=== PATIENT | male | born 1985 ===

== ENCOUNTER 2021-10-09 03:52 | Outpatient (CLI) | payer BC, SELFPAY ==
--- OUTSIDE RECORDS SUMMARY | 2021-10-09 03:54 | XMS_ITS | Encounter Summary ---
:1985 External Reference #:[id number] Author Reason for Visit None recorded. Assessment and Plan 1. Hyperlipidemia screening ? CMP, serum or plasma ? lipid panel, serum ? lipoprotein a, qn, serum 2. Increased frequency of urinat ion ? frequent urination: care i nstructions ? urinalysis complete, refle x culture ? PSA, total + free, serum o r plasma ? HbA1c (hemoglobin A1c), bl ood ? CBC w/ diff 3. Vitamin D deficiency ? vitamin D, 25-hydroxy, tot al, serum 4. Temporomandibular joint disor carmen ? temporomandibular disorder : care instructions ? physical therapist referra l - also has had 7 concussions in lifetime and knee injuries- please do full evalua tion for chronic issues 5. Pain of right knee joint 6. Pain of right knee region 7. Raynaud's phenomenon Discussion Note: None recorded. Plan of Care Patient Instructions 1. please take time to fill vaccina tion records referral to Physical therapy 2 ,eat blueberries 1/4 cups a day- when do smoothies Reminders Provider Appointments Established Jen persaudrocio Corinabuddy, Patient 45 10/15/2021 ND 3:45PM Lab CMP, Serum or [place] Plasma 09/29/2021 [facility] ? Lipid Panel, [place] Serum 09/29/2021 [facility] ? Lipoprotein a, No [place] Qn, Serum 09/29/2021 [facility] ? Urinalysis [place] Complete, Reflex Culture 09/29/2021 [facility] ? PSA, Total + [place] Free, Serum or Plasma 09/29/2021 [facility] ? HbA1C [place] (Hemoglobin a1C), Blood 09/29/2021 [facility] ? CBC W/ Diff [place] 09/29/2021 [facility] ? Vitamin D, [place] 25-Hydroxy, Total, Serum 09/29/2021 [facility] Referral Physical [facility] Referral 09/29/2021 Therapy Procedures None recorded. ? ? Surgeries None recorded. ? ? Imaging None recorded. ? ? Medications No Medications Reported Medications Administered None recorded. Vitals Height Weight BMI Blood Pressure 5 ft 6.5 in 157 lbs 16 oz 25.1 kg/m2 110/72 mm[Hg] Results Lab Results None recorded. Allergies Code Code System Name Reaction Severity Onset NKDA ? ? ? Problems Name Status Onset Date Source ? Joint Stiffness Active 09/29/2021 ? Procedures Date Name Performed by ? 09/07/2019 Vasectomy Information not avai lable Vaccine List None recorded. Social History Tobacco Smoking Status Never Smoker What type of diet are you following? REGULAR Do you have difficulty walking or climbing N stairs? Are you currently employed? Y Are you able to care for yourself? Y Have you processed blood or body fluids from N an Ebola virus disease patient without appropriate PPE? Is blood transfusion acceptable in an Y emergency? What is your relationship status? What is your level of alcohol consumption? Occasional Do you have any pets? Y Do you wear a helmet when biking? Y Have you been to an area known to be high risk N for COVID-19? What type of child care cook do you use? none Are you deaf or do you have serious difficulty N hearing? Are you passively exposed to smoke? N Do you use your seat belt or car seat Y routinely? Do you or have you ever used any other forms N of tobacco or nicotine? Are there any guns present in your home? N Do you have difficulty dressing or bathing? N What is the highest grade or level of school [id number] you have completed or the highest degree you have received? How many children do you have? 0 Are you blind or do you have difficulty N seeing? Do you have transportation difficulties? N In the 14 days before symptom onset, have you N had close contact with a person who is under investigation for COVID-19 while that person was ill? Do you have difficulty doing errands alone? N Do you reside in or have you traveled to an N area where Ebola virus transmission is active? Do you use sunscreen routinely? Y Do you have an advanced directive? N How many days of moderate to strenuous 4 exercise, like a brisk walk, did you do in the last 7 days? Do you use any illicit or recreational drugs? N What is your exercise level? Heavy In the 14 days before symptom onset, have you N had close contact with a laboratory-confirmed COVID-19 while that case was ill? Have there been any changes to your family or N social situation? Do you use insect repellent routinely? N What is the fluoride status of your home? Fluoridated Are you sexually active? Y Do you have difficulty concentrating, N remembering or making decisions? What types of sporting activities do you biking, runnig, hik e and ski participate in? On those days that you engage in moderate to 60 strenuous exercise, how many minutes, on average, do you exercise? What is your level of caffeine consumption? Occasional Do you feel stressed (tense, restless, [id number] nervous, or anxious, or unable to sleep at night)? Family History Relation Problem Onset Age of Age Notes Mother Hypertensive disorder (No N/A (No No geremias) Information) Paternal Grandfather Diabetes mellitus (No N/A (N o Notes) Information) Functional Status No Impairment. Past Encounters 09/29/2021 Hyperlipidemia Screening; Increased Freq uency of Urination; Vitamin D Deficiency; Temporomandibular Joint Disorder; Pain of Right Knee Joint; Pain of Right Knee Region; Raynaud's Phenomenon Yesenia Churchill, [place]: [address] [place] [address], Ph. [phone] History of Present Illness Note: <div>2011 last concussion- skiing others were sports in childhood- </div><div>no post concussion- </div><div>supplements- green drink amazing grass and mushroom tea- ten blend of shrooms- </div><div>for last 10 yrs on and off- </div><div>
</div><div>hep c, covid- just got booster 1 week ago- </div><div>big proponent- </div><div>
</div><div>general health very good- but got a lot of concussions- </div><div>pushes boundries of phyical limits- </div><div>
</div><div>he has noticed freq of urination- if he over drinks he will pee too much- </div><div>and he fears he will dehyrate himeself ig he drinks too much- </div><div>his own theory- </div><div>sugary things make him pee more- so he cut sugar out</div><div>if he adds electrolytes to drinks he pees- more- </div><div>< br></div><div>urgency to urinate- typically not a problem- </div><div>no fork in stream- </div><div>if he drinks a lot he finds he gets dehydrate- </div><div>clear and copius and doesnt want to flush nutrients out- </div><div>
< /div><div>bowels- are regular 2xday</div><div>if not eating salad then stool harder- </div><div>lots of fresh fruit and veggies- no </div><div>frozen yes- </div><div>smoothies when doesnt feel like doing anything- </div><div>walnuts pecan and almonds cashews 1/4 cup flax spinach and kale and mari of fruits with banana on top 4-5 times a week</div><div>
</div><div>1 time an hour- every 1/2 hour if drinks too much</div><div>
</div><div>knee pain from skiing and running- he has to strengthen before exercise and walk after skiing to avoid pain- </div><div>
</div><div>terrible circulation to hands- </div><div>mild looney bite? </div><div>hands turn white</div><div>feet not as bad- </div><div>
</div> Review of Systems None recorded. Physical Exam ? General Adult Exam Reported By: Patient Constitutional: General Appearance: healthy- appearing, well-nourished, well-developed. Level of Dis tress: NAD. Ambulation: ambulating normally Psychiatric: Insight: good judgement. Men serjio Status: active and alert, normal mood, normal affect. Orienta tion: to time, to place, to person. Memory: recent memory normal , remote memory normal Head: Head: normocephalic, atrauma tic Eyes: Lids and Conjunctivae: non-i njected, no discharge, no pallor. Pupils: PERRLA. Corneas: ventura ssly intact. Fundoscopic: grossly normal except where noted, n ormal optic discs, normal vessels, no exudates, no hemorrhages. EO M: EOMI. Lens: clear. Sclerae: non-icteric. Vision: periphe ral vision grossly intact, acuity grossly intact ENMT: Ears: no lesions on external ear, EACs clear, TMs clear, TM mobility normal. Hearing: no hearing loss, Rinne AC>BC. Nose: no lesions on external nose, na res patent, no septal deviation, nasal passages clear, no sinus ten derness, no nasal discharge. Lips, Teeth, and Gums: no mouth or lip ulcers, no bleeding gums, normal dentition. Oropharynx: moist mucous membranes, no exudates, tonsils not enlarged, erythema Lungs: Respiratory effort: no dyspn ea. Percussion: no dullness, flatness, or hyperresonance. Auscultat ion: breath sounds normal, good air movement, CTA except as note d, no wheezing, no rales/crackles, no rhonchi Cardiovascular: Apical Impulse: not displace d. Heart Auscultation: RRR, normal S1, normal S2, no murmurs, no ru bs, no gallops. Neck vessels: no carotid bruits. Pulses inclu ding femoral / pedal: normal throughout Abdomen: Bowel Sounds: increased. Ins pection and Palpation: soft, non-distended, no tenderness , no guarding, no rebound tenderness, no masses, no CVA tenderness . Liver: non-tender, no hepatomegaly. Spleen: non-tender, no splen omegaly. Hernia: none palpable Musculoskeletal:: Motor Strength and Tone: nor mal, normal tone. Joints, Bones, and Muscles: normal movement of all extremities, no contractures, no bony abnormalities, no malal ignment, no tenderness. Extremities: no cyanosis, no edema, no varic osities, no palpable cord Neurologic: Gait and Station: normal gai t, normal station. Cranial Nerves: grossly intact. Sensation: g rossly intact. Coordination and Cerebellum: no tremor Skin: Inspection and palpation: no rash, no lesions, good turgor, no jaundice. Nails: normal Notes: <div>varicose veins in calve s- </div><div>bilateral - 2011 started noticing no spider veins</di v><div>skin on extremities turns white- circulation return wNL</div> <div>
</div><div>
</div>
--- OUTSIDE RECORDS SUMMARY | 2021-10-09 03:54 | XMS_ITS ---
:1985 External Reference #:[id number] Author Care Team Providers Name Role Phone Corinabuddy Primary Care Provider Unavailable Allergies Code Code System Name Reaction Severity Status Onset NKDA ? Medications No Medications Reported Problems Name Status Onset Date Source ? Joint Stiffness Active 09/29/2021 ? Procedures Date Name Performed by ? 09/07/2019 Vasectomy Information not avai lable Results Lab Results None recorded. Past Encounters 09/29/2021 Hyperlipidemia Screening; Increased Freq uency of Urination; Vitamin D Deficiency; Temporomandibular Joint Disorder; Pain of Right Knee Joint; Pain of Right Knee Region; Raynaud's Phenomenon Yesenia Churchill, [place]: [address] [place] [address], Ph. [phone] Social History Tobacco Smoking Status Never Smoker Vaccine List None recorded. Plan of Care Patient Instructions 1. please take time to fill vaccina tion records referral to Physical therapy 2 ,eat blueberries 1/4 cups a day- when do smoothies Reminders Provider Appointments None recorded. ? ? Lab None recorded. ? ? Referral None recorded. ? ? Procedures None recorded. ? ? Surgeries None recorded. ? ? Imaging None recorded. ? ? Vitals Height Weight BMI Blood Pressure 5 ft 6.5 in 157 lbs 16 oz 25.1 kg/m2 110/72 mm[Hg]
[2021-10-09 15:54] LABS: Bilirubin Negative (Negative); Blood Negative (Negative); Clarity Clear (Clear); Glucose Negative (Negative); Ketones Negative (Negative); Leukocyte Esterase Negative (Negative); Nitrite Negative (Negative); Urobilinogen 0.2 EU/dL (Up TO 0.2)
[2021-10-09 16:09] LABS: Abs Immature Grans 0.01 10^3/uL (0.0-0.06); Absolute Basophil Count 0.04 10^3/uL (0.0-0.2); Absolute Eosinophil Count 0.09 10^3/uL (0.0-0.7); Absolute Lymphocyte Count 2.13 10^3/uL (1.2-3.4); Absolute Monocyte Count 0.49 10^3/uL (0.1-0.8); Absolute Neutrophil Count 3.01 10^3/uL (1.2-6.7); Basophils % 0.7; Eosinophils % 1.6; HCT 45.5 % (40.0-50.0); Immature Grans % 0.2; Lymphocytes % 36.9; MCH 31.6 pg (27.0-33.0); MCV 95.8 fL (80-95); MPV 10.8 fL (8.0-11.0); Monocytes % 8.5; Neutrophils % 52.1; Nucleated RBC 0 %; Platelet Count 217 10^3/uL (130-400); RBC 4.75 10^6/uL (4.36-5.78); RDW 11.2 % (11.8-14.1); RDW-SD 39.7 fL; WBC 5.77 10^3/uL (4.4-10.8)
[2021-10-09 17:32] LABS: ALT 43 U/L (16-63); AST 23 U/L (15-37); Albumin 4.7 g/dL (3.4-5.0); Alkaline Phosphatase 82 U/L (46-116); Anion Gap 8.7 mmol/L (3-11); BUN 15 mg/dL (7-18); Bilirubin, Total 0.3 mg/dL (0.2-1.0); CO2 30.3 mmol/L (21.0-32.0); CREATININE 0.9 mg/dL (0.70-1.30); Calcium 9.4 mg/dL (8.5-10.1); Calculated LDL 169 mg/dL (<100); Chloride 101 mmol/L (98-107); Cholesterol 261 mg/dL (<200); Glucose 133 mg/dL (74-106); HDL Cholesterol 66 mg/dL (40-60); Potassium 4.5 mmol/L (3.5-5.1); Sodium 140 mmol/L (136-145); Total Protein 7.8 g/dL (6.4-8.2); Triglyceride 130 mg/dL (<150)
[2021-10-09 17:55] LABS: Hemoglobin A1C 5.6 % (<5.7)
[2021-10-12 00:29] LABS: Vitamin D 25 Total 16.3 ng/mL (30-100)
[2021-10-13 10:07] LABS: Lipoprotein (a) 11 nmol/L (<75)
== END 2021-10-09 03:53 | disposition home or self-care (01) ==
LOC: LBO 03:53
PROVIDERS: Visit Provider Naturopath
DX: R35.0 Frequency of micturition (principal); E55.9 Vitamin D deficiency, unspecified; Z13.220 Encounter for screening for lipoid disorders
CPT/HCPCS: 36415; 80053; 80061; 82306; 83695; 81003; 83036; 84154; 85025

== ENCOUNTER 2021-12-25 11:46 | Emergency (ER) | payer BC, SELFPAY ==
[2021-12-25 11:52] VITALS: BP 140/80; PULSE 54; RESP 16; TEMP 36.6; O2SAT 97
--- NOTE | 2021-12-25 12:27 | W.ED.GENAD ---
Discharge Plan Disposition Patient Disposition: HOME Condition: Stable Discharge Details Clinical Impression: Animal bite of ankle Primary Care Provider: Debbie,[facility] ED Provider: Ephraim Hidalgo Home Meds and New Rx's Prescriptions: Continued amoxicillin-pot clavulanate 875-125 mg tablet 1 tab PO BID Qty: 20 0RF Rx Instructions: Take with meal. Take 1 pill every 12 hours x 10 days mupirocin 2 % ointment 1 applic topical BID Qty: 15 0RF Rx Instructions: apply twice daily for 7 days Discharge Instructions Instructions: Animal Bite (ED) Additional Instructions: Please continue to take medication as prescribed by urgent care and return for follow-up if you notice any signs of worsening infection such as spreading redness, drainage from the wounds, fever or chills. As discussed please contact me analog design engineer of the dog and inform them that they should observe the dog for the next 10 days to look for any abnormal behavior. If abnormal behavior occurs they should take her dog immediately to the vet and contact you and return. At this time given that the dog was fully vaccinated for rabies and is a domesticated dog the chances of obtaining rabies from this event is low. If you change your mind and decide that you would like to proceed with the treatment for [employer] exposure please return to the emergency department. Medical Decision Making Patient presenting to emergency department for chief complaint of dog bite. Patient was seen at urgent care and referred here for rabies treatment but at that time patient was pending information on dog vaccine status. When I spoke with patient he was able to obtain dog's vaccine status which is fully vaccinated. Discussed with patient risk versus benefit of rabies treatment and vaccination given that this was a domesticated animal, who typically lives indoors, and is fully vaccinated. After full discussion of risk versus benefit shared decision-making was utilized and patient decided to wait 10 days while nurse observe dog for any abnormal behavior. Patient was informed that he may return at any point if he changes his mind to receive vaccine but I do feel that his risk of rabies is extremely low given the circumstance. After discussion of diagnosis and plan of care patient has no further needs, questions, or concerns and states clear understanding to return to the emergency department for any worsening symptoms. Medical Records Medical records reviewed: Yes I reviewed the patient's medical records. HPI General Mode of arrival: ambulatory. Date/Time Provider Initiated Documentation: 12/25/21 12:01. Limitations to Documentation: no limitations. Information obtained by: patient. HPI Narrative: Patient presenting to emergency department with referral from urgent care due to patient being bit by dog yesterday evening and considering rabies immunization and treatment. Patient denies any change in symptoms, denies pain but states high pain tolerance, states injury only located on left lower extremity with puncture wounds which have been thoroughly cleaned and irrigated prior to arrival. Patient denies any other complaints injury or associated. Related Data Home Medications Medication Instructions Recorded Confirmed amoxicillin 875 mg-potassium 1 tab PO BID #20 tab 12/25/21 12/25/21 clavulanate 125 mg tablet mupirocin 2 % topical ointment 1 applic TOPICAL BID #15 g 12/25/21 12/25/21 Previous Rx's Medication Instructions Recorded amoxicillin 875 mg-potassium 1 tab PO BID #20 tab 12/25/21 clavulanate 125 mg tablet mupirocin 2 % topical ointment 1 applic TOPICAL BID #15 g 12/25/21 Allergies Allergy/AdvReac Type Severity Reaction Status Date / Time No Known Allergies Allergy Verified 12/25/21 11:57 General Stated Complaint: AnimalBite SHAYY: 3 Review of Systems All systems reviewed & are unremarkable except as noted in HPI and below Constitutional Constitutional: Denies chills and Denies fever(s) Musculoskeletal Musculoskeletal: Denies abnormal gait, Denies muscle weakness and Denies numbness Integumentary/Breasts Skin/Breast: Reports as per HPI, Reports erythema and Reports skin swelling Neurologic Neurologic: Denies abnormal gait and Denies numbness PFSH All Active Problems (Updated 12/25/21 @ 12:28 by Ephraim Hidalgo NP) Animal bite of ankle (Acute) Social History Smoking/Tobacco Use Status: Never Smoking risk assessment performed?: Yes Alcohol Intake: current Alcohol Intake frequency: a few times a week Drug use: Never Substance use type: does not use Do you feel safe at home: Yes Do you feel safe in your relationship?: Yes Exam Const General: cooperative and no acute distress Orientation: alert, awake and oriented x3 Limitations: mental status not altered Resp Effort & Inspection: normal respiratory effort and able to speak in complete sentences Cardio Rate: regular rate Rhythm: regular rhythm Pulses: posterior tibial pulses present and dorsalis pedis present Skin Trauma: puncture (Multiple puncture wounds noted to left lower extremity lateral aspect) Neuro General: patient alert, patient awake, patient oriented x3, gait normal, moves all extremities, normal light touch, pain and propioception and no focal motor deficits Motor: no movement abnormalities noted Sensory Exam: no sensory deficits noted Course Vital Signs Vital signs: Vital Signs Temperature 36.6 C 12/25/21 11:52 Pulse 54 L 12/25/21 11:52 Respiratory Rate 16 12/25/21 11:52 Blood Pressure 140/80 12/25/21 11:52 Pulse Oximetry 97 12/25/21 11:52 Temperature 36.6 C 12/25/21 11:52 Temperature Source Oral 12/25/21 11:52 Pulse 54 L 12/25/21 11:52 Respiratory Rate 16 12/25/21 11:52 Respiratory Effort Non-Labored 12/25/21 11:58 Blood Pressure 140/80 12/25/21 11:52 Blood Pressure Position Sitting 12/25/21 11:52 Pulse Oximetry 97 12/25/21 11:52 Oxygen Delivery Method Room Air 12/25/21 11:52 Oxygen Flow Rate 0 12/25/21 11:52 PAWSS Have you Been Recently Intoxicated or Drunk Within the Last 30 days?: No Have you Ever Experienced Previous Episodes of Alcohol Withdrawal?: No Have you ever Experienced Withdrawal Seizures?: No Have you ever Experienced Delirium Tremens(DT)s?: No Have you ever undergone Alcohol Rehabilitation Treatment (i.e, inpt ot outpatient treatment programs)?: No Have you ever Experienced Blackouts?: No Have you ever Combined Alcohol with other Downers within the last 90 days?: No Have you ever Combined Alcohol with any other Substance of Abuse during the last 90 days?: No Positive Blood Alcohol level on Presentation? [PCS.BAL]: No Evidence of Increased Autonomic Activity (i.e. HR>120, tremor, sweating, agitation, nausea)?: No Result: 0
== END 2021-12-25 12:54 | disposition home or self-care (01) ==
PROVIDERS: Emergency Provider Nurse Practitioner Family
DX: S91.052A Open bite, left ankle, initial encounter (principal); W54.0XXA Bitten by dog, initial encounter
CPT/HCPCS: 99283

== ENCOUNTER 2021-12-25 13:10 | Outpatient (CLI) | payer SELFPAY ==
--- NOTE | 2021-12-25 10:15 | DI.RAD_ITS ---
Exam(s) XR TIB/FIB LT EXAM: XR TIB/FIB LT CLINICAL HISTORY: r/o foreign body vs osteopathology, bite by animal, T14.8XXA. TECHNIQUE: 2D digital imaging was performed of the left tibia and fibula. Two images were obtained. AP and lateral views were obtained. COMPARISON: No exams were available for comparison FINDINGS: BONES: No acute fracture is present. No bony destructive lesion is seen. Visualized portion of knee a nd ankle joints are unremarkable. SOFT TISSUE: Soft tissue swelling is seen in the lower leg laterally where the BB was placed. No rad iopaque foreign bodies seen in the soft tissues. There is a small amount of subcutaneous air in the soft tissues. IMPRESSION: No radiopaque foreign body. DATA REPOSITORY: RADIATION DOSE DELIVERED:
== END 2021-12-25 13:30 ==
PROVIDERS: Visit Provider Nurse Practitioner Family
DX: M79.89 Other specified soft tissue disorders (principal); M79.662 Pain in left lower leg; S81.852D Open bite, left lower leg, subsequent encounter; W54.0XXD Bitten by dog, subsequent encounter
CPT/HCPCS: 73590

== ENCOUNTER 2024-10-24 04:22 | Outpatient (CLI) | payer BC, SELFPAY ==
[2024-10-24 10:43] LABS: Anion Gap 6.5 mmol/L (3-11); BUN 17 mg/dL (7-18); CO2 28.5 mmol/L (21.0-32.0); CREATININE 0.9 mg/dL (0.70-1.30); Calcium 9.2 mg/dL (8.5-10.1); Calculated LDL 143 mg/dL (<100); Chloride 104 mmol/L (98-107); Cholesterol 230 mg/dL (<200); Estimated GFR 111.42 (mL/min/1.73m2); Glucose 102 mg/dL (74-106); HDL Cholesterol 80 mg/dL (40-60); Potassium 4.9 mmol/L (3.5-5.1); Sodium 139 mmol/L (136-145); Triglyceride 37 mg/dL (<150); Vitamin D 25 Total 17.8 ng/mL (30-100)
[2024-10-24 12:25] LABS: Hemoglobin A1C 5.7 % (<5.7)
[2024-10-24 20:58] LABS: HIV-1/2 Ag & Ab Screen Negative (Negative)
[2024-10-24 21:03] LABS: Hepatitis C Ab w Rflx HCV PCR Negative (Negative)
== END 2024-10-24 04:23 | disposition home or self-care (01) ==
LOC: LBO 04:22
PROVIDERS: PCP Nurse Practitioner Family; Referring Provider Nurse Practitioner Family; Visit Provider Nurse Practitioner Family
DX: Z00.00 Encounter for general adult medical examination without abnormal findings (principal); E55.9 Vitamin D deficiency, unspecified; R35.0 Frequency of micturition
CPT/HCPCS: 36415; 80048; 80061; 82306; 86803; 87389; 83036

== ENCOUNTER 2024-12-03 02:54 | Outpatient (CLI) | payer BC, SELFPAY ==
[2024-12-06 17:33] LABS: Apolipoprotein B, Serum 127 mg/dL; Beta VLDL Cholesterol Not Detected mg/dL (<15); Beta VLDL Triglycerides Not Detected mg/dL (<15); Cholesterol, Total, CDC 277 mg/dL; Chylomicron Cholesterol Not Detected; Chylomicron Triglycerides Not Detected; HDL Cholesterol, CDC 67 mg/dL (>=40); LDL Cholesterol 192 mg/dL; LDL Triglycerides 41 mg/dL (<=50); Lp(a) Cholesterol <5 mg/dL (<5); LpX Not detected; Triglycerides, CDC 104 mg/dL; VLDL Cholesterol 18 mg/dL (<30); VLDL Triglycerides 44 mg/dL (<120)
[2024-12-13 06:31] LABS: ZnT8 Antibodies 20.4 U/mL (<15.0)
== END 2024-12-03 02:55 | disposition home or self-care (01) ==
LOC: LOS 02:54
PROVIDERS: PCP Nurse Practitioner Family; Visit Provider Nurse Practitioner Family
DX: E78.5 Hyperlipidemia, unspecified (principal); R73.09 Other abnormal glucose
CPT/HCPCS: 36415; 80061; 86337; 86341; 82172; 82664

== ENCOUNTER 2025-04-25 01:05 | Outpatient (CLI) | payer BC, SELFPAY ==
[2025-04-25 13:51] LABS: TSH (W/Ref FT4) 1.38 uIU/mL (0.36-3.74); Vitamin D 25 Total 25 ng/mL (30-100)
== END 2025-04-25 01:06 | disposition home or self-care (01) ==
LOC: LOS 01:05
PROVIDERS: PCP Nurse Practitioner Family; Visit Provider Nurse Practitioner Family
DX: E55.9 Vitamin D deficiency, unspecified (principal); R45.89 Other symptoms and signs involving emotional state
CPT/HCPCS: 36415; 82306; 84443

== ENCOUNTER 2025-07-31 13:32 | Outpatient (REF) | payer BC, SELFPAY ==
--- NOTE | 2025-07-31 13:24 | SKI_PTH ---
PATIENT: Ephraim Montero LOC: [facility] U#:[id number] AGE/SX: 39/M ROOM: RE07/31/[address]: MUMTAZ Varner : 1985 BED: DIS: 07/31/2025 SPEC #: [id number] RECD: 07/31/25 15:53 STATUS: ARTURO REQ #: [id number] SHAUN: 07/31/25 13:[address]: Sherry Caicedo DEPT: Surgical Specimen RECD BY: Trisha Lind ENTERED: 07/31/25 15:54 SP TYPE: YOON YAÑEZ DR: Roxana Steen APRN Tissues: 1 - SKIN BIOPSY(SHAVE/PUNCH) 2 - SKIN BIOPSY(SHAVE/PUNCH) Procedures: SKIN LEVEL 4 Comments: [id number]
== END 2025-07-31 13:33 | disposition home or self-care (01) ==
LOC: LBN 13:32
PROVIDERS: PCP Nurse Practitioner Family; Visit Provider Physical Therapy Assistant
DX: D22.39 Melanocytic nevi of other parts of face (principal)
CPT/HCPCS: 88305

== ENCOUNTER 2025-08-14 03:37 | Outpatient (CLI) | payer BC, SELFPAY ==
[2025-08-19 17:17] LABS: Apolipoprotein B, Serum 65 mg/dL; Beta VLDL Cholesterol Not Detected mg/dL (<15); Beta VLDL Triglycerides Not Detected mg/dL (<15); Cholesterol, Total, CDC 169 mg/dL; Chylomicron Cholesterol Not Detected; Chylomicron Triglycerides Not Detected; HDL Cholesterol, CDC 63 mg/dL (>=40); Interpretation Normal; LpX Not detected; Triglycerides, CDC 125 mg/dL; VLDL Triglycerides 79 mg/dL (<120)
== END 2025-08-14 03:38 | disposition home or self-care (01) ==
LOC: LOS 03:37
PROVIDERS: PCP Nurse Practitioner Family; Visit Provider Nurse Practitioner Family
DX: E78.00 Pure hypercholesterolemia, unspecified (principal)
CPT/HCPCS: 36415; 80061; 82172; 82664

== ENCOUNTER 2025-10-10 01:30 | Outpatient (CLI) | payer BC, SELFPAY ==
[2025-10-10 16:40] LABS: Hemoglobin A1C 5.7 % (<5.7)
[2025-10-10 16:52] LABS: Vitamin D 25 Total 49 ng/mL (30-100)
== END 2025-10-10 01:31 | disposition home or self-care (01) ==
LOC: LOS 01:30
PROVIDERS: PCP Nurse Practitioner Family; Visit Provider Nurse Practitioner Family
DX: E13.9 Other specified diabetes mellitus without complications (principal); R79.89 Other specified abnormal findings of blood chemistry; R73.09 Other abnormal glucose
CPT/HCPCS: 36415; 82306; 83036; 84681

== ENCOUNTER 2025-10-25 00:37 | Outpatient (CLI) | payer BC, SELFPAY ==
[2025-10-25 11:08] LABS: ALT 46 U/L (10-49); AST 34 U/L (<34); Albumin 4.5 g/dL (3.2-5.0); Alkaline Phosphatase 64 U/L (46-116); Bilirubin, Direct 0.2 mg/dL (<=0.3); Bilirubin, Total 0.8 mg/dL (0.2-1.2); Total Protein 7.1 g/dL (5.7-8.2)
== END 2025-10-25 00:38 | disposition home or self-care (01) ==
LOC: LOS 00:37
PROVIDERS: PCP Nurse Practitioner Family; Visit Provider Nurse Practitioner Family
DX: E78.00 Pure hypercholesterolemia, unspecified (principal)
CPT/HCPCS: 36415; 80076